=== PATIENT | female | born 1985 | race Two or more races ===

== ENCOUNTER 2021-02-04 13:00 | Inpatient (IN) | payer OTHER ==
[~2021-02-04] VITALS: Ht 165.1 cm; Wt 2.3 kg
[2021-02-11] MEDS ORDERED: PRENATAL PO (16:15)
[2021-02-17] MEDS ORDERED: PRENATAL + DHA1 EAC1 (08:54)
== END 2021-02-18 14:13 | disposition home or self-care (01) | DRG 788 ==
LOC: SURG-SUITE 02-16 18:21 → LDR 02-16 18:21 → SURG-SUITE 02-16 20:57 → OB/GYN 02-17 13:00 → SURG-SUITE 02-18 14:13
PROVIDERS: ADMIT Obstetrics & Gynecology; ATTEND Obstetrics & Gynecology
PROC: 4A1HXFZ Monitoring of Products of Conception, Cardiac Rhythm, External Approach (ICD-10-PCS; 2021-02-16)
PROC: 10D00Z1 Extraction of Products of Conception, Low, Open Approach (ICD-10-PCS; principal; 2021-02-16 19:15)
DX: O64.1XX0 Obstructed labor due to breech presentation, not applicable or unspecified (principal); O65.5 Obstructed labor due to abnormality of maternal pelvic organs; O34.03 Maternal care for unspecified congenital malformation of uterus, third trimester; Q51.28 Other and unspecified doubling of uterus; Z37.0 Single live birth; Z3A.38 38 weeks gestation of pregnancy

== ENCOUNTER 2023-08-29 16:24 | Outpatient (CLI) | payer OTHER ==
[~2023-08-29 16:24] MED LIST: PRENATAL + DHA1 EAC1; PRENATAL PO
== END 2023-08-29 18:05 | disposition home or self-care (01) ==
LOC: NST 16:24
PROVIDERS: ATTEND Obstetrics & Gynecology Maternal & Fetal Medicine
DX: Z34.83 Encounter for supervision of other normal pregnancy, third trimester (principal)

== ENCOUNTER 2023-09-18 00:17 | Inpatient (IN) | payer OTHER ==
[2023-09-12 10:34] LABS: HEMATOCRIT 37.8 % (36.0-45.00); HEMOGLOBIN 12.9 g/dL (12.0-15.00); MEAN CELL VOLUME 87.6 fL (80.00-100.00); MEAN CORPUSCULAR HEMOGLOBIN 29.8 pg (27.00-32.0); PLATELET COUNT 176 K/uL (150-450); RED BLOOD COUNT 4.31 M/uL (4.00-6.00); RED CELL DISTRIBUTION WIDTH 13.2 % (11.5-14.5)
[2023-09-12 11:00] LABS: INR < 0.93; PARTIAL THROMBOPLASTIN TIME 29.8 SECONDS (22.0-34.0); PROTHROMBIN TIME 9.3 SECONDS (9.0-11.5)
[2023-09-12 11:08] LABS: ALBUMIN 2.5 gm/dL (3.4-5.0); BILIRUBIN TOTAL 0.38 mg/dL (0.3-1.2); CALCIUM 8.9 mg/dL (8.5-10.1); CREATININE SERUM 0.63 mg/dL (0.55-1.02); GFR 106.33; GLOBULINA 4.1 G/DL (2.4-3.5); TOTAL PROTEIN 6.6 gm/dL (6.4-8.2)
[~2023-09-18] VITALS: Ht 165.1 cm; Wt 71.7 kg
[2023-09-18] MEDS ORDERED: PRENATAL TABLE1 EAC1 PO (01:40)
== END 2023-09-19 14:13 | disposition home or self-care (01) | DRG 788 ==
LOC: EDBD → OB/GYN 00:17 → LDR 00:17 → OB/GYN 01:36
PROVIDERS: ADMIT Obstetrics & Gynecology Maternal & Fetal Medicine; ATTEND Obstetrics & Gynecology Maternal & Fetal Medicine
PROC: 4A1HXCZ Monitoring of Products of Conception, Cardiac Rate, External Approach (ICD-10-PCS; 2023-09-18)
PROC: 10D00Z1 Extraction of Products of Conception, Low, Open Approach (ICD-10-PCS; principal; 2023-09-18 00:15)
DX: O34.211 Maternal care for low transverse scar from previous cesarean delivery (principal); Z3A.39 39 weeks gestation of pregnancy; Z37.0 Single live birth; Z20.822 Contact with and (suspected) exposure to COVID-19